=== PATIENT | male | born 1975 | race Caucasian/White ===

== ENCOUNTER 2017-04-22 07:22 | Day surgery (SDC) | payer BC ==
[~2017-04-22 07:22] MED LIST: DIAZEPAM 5 MG TABLET PO ONE
[2017-04-22] MEDS ORDERED: DIAZEPAM 5 MG TABLET PO ONE (07:23)
[2017-04-22] MEDS ORDERED: LIDOCAINE 1% W/EPI 1:200,000 MPF 30ML SQ ONE (07:23)
--- NOTE | 2017-04-22 22:15 | Operative Note ---
DATE OF SURGERY: 04/22/2017 PREOPERATIVE DIAGNOSIS: Right carpal tunnel syndrome. POSTOPERATIVE DIAGNOSIS: Right carpal tunnel syndrome. PROCEDURE: Right carpal tunnel release. STAFF SURGEON: Scooter Ford MD ANESTHESIA: Local. PREPARATION: ChloraPrep. INDIVIDUAL CONSIDERATIONS: None. PROCEDURE: The patient was taken to the Operating Room and placed supine on the operating table. His right arm was prepped and draped in the usual fashion. The patient's longitudinal wrist crease was identified and it was infiltrated with 1% Lidocaine with Epinephrine. The limb was elevated, the tourniquet was inflated to 250 mmHg. The patient had his incision on the longitudinal wrist crease volarly and just gently crossing the wrist crease at a 45 degree angle ulnarly. Sharp dissection carried down through skin and subcutaneous tissue. Small veins were coagulated with a Bovie. Sharp dissection carried down through the palmar fascia through the small adductor brevis and then through the transverse metacarpal fascia under direct view. It was released distally to the superficial arch and proximally to the antebrachial fascia. The underlying median nerve looked contused but there were no tumors within the carpal tunnel. The tourniquet was let down. Hemostasis was obtained with a Bovie and compression after irrigation. The skin was approximated with multiple interrupted 4-0 nylon in a vertical mattress fashion and a sterile Bulkee compressive hand dressing was applied. The patient tolerated the procedure well. Needle and sponge counts were correct. Estimated blood loss was minimal and he was taken back to Recovery in good condition. There were no complications. cc: Dr. Alon Gillette JOB NUMBER: [id number] MTDD
== END 2017-04-22 10:10 | disposition home or self-care (01) ==
LOC: SUR 07:22
PROVIDERS: ATTEND Orthopaedic Surgery
DX: G56.01 Carpal tunnel syndrome, right upper limb (principal); E03.9 Hypothyroidism, unspecified
CPT/HCPCS: 64721; J3490